=== PATIENT | male | born 1955 | race Caucasian/White ===

== ENCOUNTER → 2020-08-12 | Outpatient (CLI) | payer MEDICARE, OTHER ==
[~2020-08-12] MED LIST: CEPHALEXIN500 M1 PO; HYDROCODONE BIT1 TA3 PO; NO HOME MEDICATIONS; NORCO 325 MG-51 TAB PO; PRILOSEC 20MG20 MG PO
== END ==
LOC: COL.RAD 08:07
DX: N28.9 Disorder of kidney and ureter, unspecified (principal); K44.9 Diaphragmatic hernia without obstruction or gangrene
CPT/HCPCS: Q9967

== ENCOUNTER → 2020-09-02 | Outpatient (CLI) | payer MEDICARE, OTHER ==
[~2020-09-02] VITALS: Ht 172.7 cm; Wt 78.8 kg
[~2020-09-02] MED LIST changes: +IBUDONE5 PO; +VASOTEC 10M10 MG/TAB PO
[2020-09-02 12:19] VITALS: BP 171/91; PULSE 67
--- NOTE | 2020-09-02 15:32 | NUR ---
procedure rescheduled due to no iv access
== END ==
LOC: COL.RAD 11:58
DX: N28.1 Cyst of kidney, acquired (principal)

== ENCOUNTER → 2020-09-14 | Outpatient (CLI) | payer MEDICARE, OTHER ==
[~2020-09-14] VITALS: Ht 172.7 cm; Wt 76.5 kg
[2020-09-14 13:03] LABS: BASO % 0.4 % (0.0-2.0); EOS # 0.1 (0.0-0.7); EOS % 1.4 % (0-4.0); GRAN # 3.5 (1.4-6.5); GRAN % 62.5 % (42.2-75.2); HEMATOCRIT 43.6 % (42.0-52.0); HEMOGLOBIN 14.7 g/dl (13.5-18.0); LYMPH # 1.3 (1.2-3.4); LYMPH % 23.6 % (20.0-51.0); MEAN CELL VOLUME 91 fl (80.0-100.0); MEAN CORPUSCULAR HEMOGLOBIN 31 pg (27.0-31.0); MEAN CORPUSCULAR HGB CONC 34 g/dl (33.0-37.0); MEAN PLATELET VOLUME 10.3 fl (7.4-10.4); MONO # 0.7 (0.1-0.6); MONO % 11.7 % (1.7-9.3); PLATELET COUNT 131 K/mm3 (130-400); REDCELL DISTRIBUTION WIDTH-CV 12.5 % (11.5-14.5)
[2020-09-14 13:04] VITALS: BP 136/72; PULSE 73
[2020-09-14 13:10] LABS: INR 1.1 (0.8-3.0); PROTHROMBIN TIME 11.9 SECONDS (9.7-12.8)
[2020-09-14 13:13] LABS: ALBUMIN 4.1 gm/dL (3.5-5.0); BILIRUBIN,TOTAL 1.1 mg/dL (0.0-1.0); CALCIUM 9.3 mg/dL (8.4-10.2); CREATININE, serum 0.88 (0.66-1.25); POTASSIUM 4.2 mmol/L (3.4-5.0); TOTAL PROTEIN 7.8 gm/dL (6.4-8.2)
--- NOTE | 2020-09-14 14:33 | NUR ---
PROCEDURE CANCELLED BY DR FAM
[2020-09-14 22:33] LABS: HEPATITIS B SURFACE ANTIBODY <2.0 (()); HEPATITIS B SURFACE ANTIGEN Negative (Negative)
[2020-09-15 15:42] LABS: HEPATITIS AB (HAV) IGG INDEX 7.62 Index (<=1.00)
== END ==
LOC: COL.RAD 09-08 09:30
PROVIDERS: Urology
DX: N28.1 Cyst of kidney, acquired (principal); N28.89 Other specified disorders of kidney and ureter

== ENCOUNTER 2021-01-11 09:26 | Day surgery (SDC) | payer MEDICARE, OTHER ==
[~2021-01-11] VITALS: Ht 170.2 cm; Wt 77.5 kg
[2021-01-11 10:08] VITALS: BP 144/98; PULSE 74; TEMP 97.7
[2021-01-11] MEDS ORDERED: IBU800 M1 PO (10:21)
[2021-01-11] MEDS ORDERED: PROTONIX 40MG T40 MG PO (11:59)
[2021-01-11 12:10] VITALS: BP 135/86; PULSE 74; TEMP 97.9
--- NOTE | 2021-01-11 12:10 | NUR ---
PATIENT TRANSPORTED PER CART FROM GI SUITE TO BAY 5 ACCOMPANIED BY ENDO RN. PATIENT REMAINS ON CART. MONITORS APPLIED. VSS ON ROOM AIR. PATIENT TALKING WITH STAFF. DENIES DISCOMFORT AND NAUSEA.
[2021-01-11 12:15] VITALS: BP 142/78; PULSE 82
--- NOTE | 2021-01-11 12:15 | NUR ---
VSS ON ROOM AIR. PATIENT GIVEN GRAPE JUICE AND MUFFIN TO EAT. DENIES DISCOMFORT AND NAUSEA.
--- NOTE | 2021-01-11 12:45 | NUR ---
LAB HAS BEEN IN PATENT ROOM SINCE BEFORE 1230 AND CONTINUE IN ROOM. LAB ATTEMPTING AT DRAWING BLOOD. REMOVED BP CUFF AND SAO2 MONITOR.. PATIENT TALKING WITH LAB.
[2021-01-11 12:55] VITALS: BP 144/87; PULSE 101
--- NOTE | 2021-01-11 12:55 | NUR ---
LAB ABLE TO DRAW BLOOD. VSS ON ROOM AIR. PATIENT DENIES DISCOMFORT AND NAUSEA. EATS ALL OF MUFFIN AND DRINKS ALL OF JUICE. 1300 IV SITE DC'D WITH CATHETER TIP INTACT. PRESSURE AND BANDAGE APPLIED. DISCHARGE INSTRUCTIONS GIVEN VERBAL AND DISCHARGE PACKET PROVIDED. QUESTIONS ANSWERED AND PATIENT VOICED UNDERSTANDING. RX FOR PROTONIX IN PACKET FOR PATIENT TO TAKE TO PHARMACY OF CHOICE. PATIENT INFORMED. PATIENT CHANGES INTO STREET CLOTHES. 1310 DISCHARGED PER WHEEL CHAIR ACCOMPANIED BY AMB RN TO PRIVATE VECHILE DRIVEN BY .
== END 2021-01-11 13:10 | disposition home or self-care (01) ==
LOC: SDCO 09:26
DX: Z12.11 Encounter for screening for malignant neoplasm of colon (principal); Z86.010 Personal history of colon polyps; K64.9 Unspecified hemorrhoids; K21.00 Gastro-esophageal reflux disease with esophagitis, without bleeding; K29.30 Chronic superficial gastritis without bleeding; K44.9 Diaphragmatic hernia without obstruction or gangrene; K29.80 Duodenitis without bleeding; B19.20 Unspecified viral hepatitis C without hepatic coma; Z20.822 Contact with and (suspected) exposure to COVID-19; I10 Essential (primary) hypertension; Z79.899 Other long term (current) drug therapy; K64.0 First degree hemorrhoids
CPT/HCPCS: 43239; G0105; 87522; J2704; J7030

== ENCOUNTER → 2021-12-15 | Outpatient (CLI) | payer MEDICARE, OTHER ==
[~2021-12-15] MED LIST changes: +IBU800 M1 PO; +PROTONIX 40MG T40 MG PO
[2021-12-15 10:33] LABS: COLLECTION METHOD CLEAN CATCH
[2021-12-15 10:39] LABS: BASO # 0.1 K/mm3 (0.0-0.2); BASO % 0.9 % (0.0-2.0); EOS # 0.2 K/mm3 (0.0-0.7); EOS % 3.6 % (0.0-4.0); GRAN % 53.6 % (42.2-75.2); HEMATOCRIT 47.7 % (42.0-52.0); HEMOGLOBIN 15.9 g/dl (13.5-18.0); LYMPH # 1.5 K/mm3 (1.2-3.4); LYMPH % 26.3 % (20.0-51.0); MEAN CELL VOLUME 92 fl (80.0-100.0); MEAN CORPUSCULAR HEMOGLOBIN 31 pg (27-31); MEAN CORPUSCULAR HGB CONC 33 g/dl (33.0-37.0); MEAN PLATELET VOLUME 9.9 fl (7.4-10.4); MONO # 0.9 K/mm3 (0.1-0.6); MONO % 15.4 % (1.7-9.3); PLATELET COUNT 131 K/mm3 (130-400); RED BLOOD COUNT 5.18 M/mm3 (4.20-5.60); REDCELL DISTRIBUTION WIDTH-CV 12.7 % (11.5-14.5)
[2021-12-15 10:55] LABS: MUCOUS Present (NOT PRESENT); PH 5 (5-8); SQUAMOUS EPITHELIAL 0-2 /hpf (0-10); URINE APPEARANCE Clear (CLEAR/HAZY); URINE BACTERIA None Seen /hpf (NONE SEEN); URINE BILIRUBIN Negative (NEGATIVE); URINE BLOOD Negative (NEGATIVE); URINE COLOR Yellow (YELLOW); URINE GLUCOSE Negative (NEGATIVE); URINE KETONE Negative (NEGATIVE); URINE LEUKOCYTE ESTERASE Negative (NEGATIVE); URINE NITRATE Negative (NEGATIVE); URINE PROTEIN(semi-quant) Negative (NEGATIVE); URINE RBC 0-2 /hpf (0-2); URINE UROBILINOGEN Negative (NEGATIVE)
[2021-12-15 10:59] LABS: ALBUMIN 3.9 gm/dL (3.4-4.8); BILIRUBIN,TOTAL 0.9 mg/dL (0.2-1.2); CALCIUM 8.9 mg/dL (8.4-10.2); CHOLESTEROL RISK RATIO 4.3; CREATININE, serum 0.93 mg/dL (0.72-1.25); POTASSIUM 4.4 mmol/L (3.5-4.5); TOTAL PROTEIN 7.3 gm/dL (6.2-8.1)
[2021-12-15 11:19] LABS: THYROID STIMULATING HORMONE 0.595 uIU/mL (0.350-4.940)
[2021-12-16 04:20] LABS: HEPATITIS C VIRUS ANTIBODY Reactive (Negative)
== END ==
LOC: COL.LAB 09:11
PROVIDERS: Family Medicine
DX: Z12.5 Encounter for screening for malignant neoplasm of prostate (principal); Z11.59 Encounter for screening for other viral diseases; I10 Essential (primary) hypertension; N28.1 Cyst of kidney, acquired; K21.9 Gastro-esophageal reflux disease without esophagitis; Z79.899 Other long term (current) drug therapy

== ENCOUNTER → 2023-07-25 | Outpatient (CLI) | payer MEDICARE, OTHER ==
[2023-07-25 10:47] LABS: ALBUMIN 3.9 gm/dL (3.4-4.8); BILIRUBIN,TOTAL 0.8 mg/dL (0.2-1.2); CALCIUM 9.6 mg/dL (8.4-10.2); CREATININE, serum 0.98 mg/dL (0.72-1.25); POTASSIUM 4.8 mmol/L (3.5-4.5)
== END ==
LOC: COL.LAB 07-24 11:06
PROVIDERS: Family Medicine
DX: B19.20 Unspecified viral hepatitis C without hepatic coma (principal)